=== PATIENT | female | born 1980 | race African-American/Black ===

== ENCOUNTER 2022-07-18 16:15 | Emergency (ER) | payer SELFPAY ==
[2022-07-18 19:21] LABS: CORONAVIRUS 2019 SARS-COV-2 NEGATIVE (NEGATIVE); INFLUENZA A NAA NEGATIVE (NEGATIVE)
[2022-07-18 19:48] LABS: BASOPHIL 0.8 % (0-2); EOSINOPHIL 5.6 % (0-5); HGB 12.3 g/dl (12.5-16.0); LYMPHOCYTE 22.6 % (15-48); MCH 31.5 pg (25.0-31.0); MCHC 33.2 g/dL (32.0-36.0); MCV 94.6 fL (78.0-100.0); MONOCYTE 8.1 % (0-12); MPV 8.7 fL (6.0-9.5); NEUTROPHIL 62.6 % (41-80); NRBC 0; PLT 287 K/uL (150-400); RBC 3.91 M/uL (4.20-5.40); RDW 18.6 % (11.5-14.0); WBC 7.3 K/uL (4.0-10.5)
[2022-07-18 20:06] LABS: INR 0.99 (0.9-1.2); PROTHROMBIN TIME 12.8 SECONDS (11.9-13.9); PTT 31.5 SECONDS (24.9-34.6)
[2022-07-18 20:08] LABS: ALBUMIN 3.6 g/dL (3.4-5.0); BILIRUBIN - TOTAL 0.2 mg/dL (0.2-1.0); BUN/CREAT RATIO (CALC) 16.2 RATIO; CREATININE 0.8 mg/dL (0.51-0.95); GLOBULIN (CALCULATION) 3.9 g/dL; POTASSIUM 3.8 mmol/L (3.5-5.1); TOTAL PROTEIN 7.5 g/dL (6.4-8.2)
== END 2022-07-18 23:05 | disposition other institution (70) ==
LOC: FER 16:15
PROVIDERS: Internal Medicine
DX: J03.90 Acute tonsillitis, unspecified (principal); I21.4 Non-ST elevation (NSTEMI) myocardial infarction; R07.89 Other chest pain; Z20.822 Contact with and (suspected) exposure to COVID-19; Z87.09 Personal history of other diseases of the respiratory system; Z88.5 Allergy status to narcotic agent; Z88.8 Allergy status to other drugs, medicaments and biological substances; Z28.310 Unvaccinated for COVID-19
CPT/HCPCS: 36415; 71250; 80053; 84484; 85025; 85610; 85730; 93005; 96372; J0696; J1100; J1170; J1200; J1644; J7030; Q0169; U0002